=== PATIENT | female | born 1955 | race Caucasian/White ===

== ENCOUNTER 2017-08-01 15:06 | Outpatient (CLI) | payer BC ==
--- NOTE | 2017-08-02 11:47 | Mammography Report ---
DIGITAL SCREENING MAMMOGRAM: 08/01/2017 CLINICAL INDICATION: A 62-year-old with family history of breast cancer, for screening. COMPARISON: Films from [place], [place] dated 01/26/2014, 02/12/2012, 06/02/2010, 11/14/2009, 05/31/2009, 05/27/2009. TECHNIQUE: Routine CC and MLO projections were obtained of the breasts. FINDINGS: The breasts demonstrate scattered fibroglandular densities bilaterally. Punctate, typically benign calcifications are present. No suspicious masses, clustered microcalcifications, or regions of architectural distortion are identified. IMPRESSION: BENIGN FINDINGS. RECOMMENDATION: ROUTINE ANNUAL SCREENING UNLESS OTHERWISE CLINICALLY INDICATED. BIRADS CATEGORY 2-BENIGN FINDINGS. STANDARD QUALIFYING STATEMENTS: 1. This examination was reviewed with the aid of Computer-Aided Detection (CAD). 2. A negative or benign imaging report should not delay biopsy if clinically suspicious findings are present. Consider surgical consultation if warranted. More than 5% of cancers are not identified by imaging. 3. Dense breasts may obscure an underlying neoplasm. TD: 08/02/2017 11:47
== END 2017-08-01 15:07 | disposition home or self-care (01) ==
LOC: DI 15:06
PROVIDERS: ATTEND Family Medicine
DX: Z12.31 Encounter for screening mammogram for malignant neoplasm of breast (principal); Z80.3 Family history of malignant neoplasm of breast
CPT/HCPCS: 77067

== ENCOUNTER 2018-10-30 08:59 | Outpatient (CLI) | payer BC ==
--- NOTE | 2018-10-31 08:55 | Ultrasound Report ---
Reason: HYPERTENSION Procedure Date: 10/30/2018 Accession Number: [id number] / [id number] Procedure: US - Arterial Visceral Complete CPT Code: FULL RESULT: EXAM: RENAL ARTERY DOPPLER ULTRASOUND EXAM DATE: 10/30/2018 10:34 AM. CLINICAL HISTORY: Hypertension. COMPARISON: None. TECHNIQUE: Real-time sonographic vascular imaging was performed by the resin filterer through the renal arterial system with a linear transducer utilizing color-flow, Doppler flow, and spectral analysis. Multiple business banking representative static images were saved for review. FINDINGS: Right Kidney: 11.0 x 6.2 x 5.1 cm. Echotexture: Within normal limits. Right Segmental Artery: Upper pole: PSV 22 cm/sec, RI 0.65. Mid pole: PSV 26 cm/sec, RI 0.65. Lower pole: PSV 26 cm/sec, RI 0.66. Right Renal Artery: Origin: PSV 107 cm/sec, RA/AO 1.14. Proximal: PSV 163 cm/sec, RA/AO 1.73. Mid: PSV 135 cm/sec, RA/AO 1.44. Distal: PSV 146 cm/sec, RA/AO 1.55. Aorta PSV: 94 cm/sec. RRV Patent: Yes. Left Kidney: 11. x 5.6 x 4.5 cm. Echotexture: Within normal limits. Left Segmental Artery: Upper pole: PSV 27 cm/sec, RI 0.64. Mid pole: PSV 29 cm/sec, RI 0.64. Lower pole: PSV 24 cm/sec, RI 0.62. Left Renal Artery: Origin: PSV 128 cm/sec, RA/AO 1.36. Proximal: PSV 153 cm/sec, RA/AO 1.63. Mid: PSV 155 cm/sec, RA/AO 1.65. Distal: PSV 142 cm/sec, RA/AO 1.51. LRV Patent: Yes. IMPRESSION: Normal renal artery Doppler ultrasound. No sonographic evidence of renal artery stenosis. CRITERIA FOR CLASSIFICATION OF RENAL ARTERY (RA) DISEASE BY DUPLEX SCANNING: RA Diameter Reduction/ RA PSV/ RAR: Normal, < 180 cm/sec, < 3.5 < 60%, >= 180 cm/sec, < 3.5 >= 60%, >= 180 cm/sec, >= 3.5 Total Occlusion: Undetectable; Not applicable RADIA
== END 2018-10-30 09:00 | disposition home or self-care (01) ==
LOC: DI 08:59
PROVIDERS: ATTEND Physician Assistant
DX: I10 Essential (primary) hypertension (principal)
CPT/HCPCS: 93975

== ENCOUNTER 2019-01-15 08:55 | Emergency (ER) | payer BC ==
[2019-01-15] MEDS ORDERED: DEXAMETHASONE 10 MG/ML VIAL PO STA (09:58)
[2019-01-15] MEDS ORDERED: CHERRY SYRUP 10 ML UDC PO ONE (09:58)
--- NOTE | 2019-01-15 10:03 | ED Physician Documentation ---
History of Present Illness - Stated complaint Stated Complaint: HEAD PAIN - Chief complaint Chief Complaint: Neuro - History obtained from History obtained from: Patient, Family - History of Present Illness Timing: How many days ago (3) - Additonal information Additional information: 63-year-old female has began to feel some effects of trigeminal neuralgia on her right side behind her right ear. She is getting electrical shocks about once per minute. She has had this happen to her previously about 6 years ago she was on some medication for about a month. She has a daughter who is had trigeminal neuralgia as well who did up having a surgical procedure. The patient denies any current illness she denies any trouble with her teeth or her ears today. Review of Systems Constitutional: denies: Fever Eyes: denies: Decreased vision Ears: denies: Ear pain Nose: denies: Rhinorrhea / runny nose, Congestion Throat: denies: Sore throat Cardiac: denies: Chest pain / pressure Respiratory: denies: Dyspnea, Cough GI: denies: Nausea, Vomiting : denies: Dysuria, Frequency PD PAST MEDICAL HISTORY - Past Medical History Past Medical History: Yes Cardiovascular: Hypertension, High cholesterol Endocrine/Autoimmune: Type 2 diabetes Musculoskeletal: Osteoporosis - Past Surgical History Past Surgical History: Yes General: Cholecystectomy - Present Medications Home Medications: Ambulatory Orders Medication Instructions Recorded Confirmed carBAMazepine [TEGretol] 100 mg PO BID #40 tablet 01/15/19 - Allergies Allergies/Adverse Reactions: Allergies Allergy/AdvReac Type Severity Reaction Status Date / Time No Known Drug Allergies Allergy Verified 01/15/19 09:03 - Social History Does the pt smoke?: No Smoking Status: Never smoker Does the pt drink ETOH?: No Does the pt have substance abuse?: No - Immunizations Immunizations are current?: Yes - POLST Patient has POLST: No PD ED PE NORMAL - Vitals Vital signs reviewed: Yes (hypertensive ) - General General: Alert and oriented X 3, No acute distress, Well developed/nourished - HEENT HEENT: Atraumatic, PERRL, EOMI, Ears normal, Moist mucous membranes, Pharynx benign, Dentition benign - Neck Neck: Supple, no meningeal sign, No bony TTP - Cardiac Cardiac: RRR, No murmur - Respiratory Respiratory: No respiratory distress, Clear bilaterally - Abdomen Abdomen: Soft, Non tender - Back Back: No CVA TTP, No spinal TTP - Derm Derm: Normal color, Warm and dry, No rash - Extremities Extremities: No deformity, No edema - Neuro Neuro: Alert and oriented X 3, communication technician 2-12 intact, No motor deficit, No sensory deficit, Normal speech Eye Opening: Spontaneous Motor: Obeys Commands Verbal: Oriented GCS Score: 15 - Psych Psych: Normal mood, Normal affect Results - Vitals Vitals: Vital Signs - 24 hr 01/15/19 09:03 Temperature 36.5 C Heart Rate 75 Respiratory 16 Rate Blood Pressure 181/100 H O2 Saturation 96 Oxygen O2 Source Room air PD MEDICAL DECISION MAKING - ED course Complexity details: considered differential, d/w patient, d/w family ED course: 63-year-old female with a history of trigeminal neuralgia has a recurrence of her symptoms again. She is administered dexamethasone 10 mg orally and we will place her on some Tegretol for the time being. Departure - Departure Disposition: 01 Home, Self Care Clinical Impression: Trigeminal neuralgia Condition: Stable Instructions: ED Neuralgia Trigeminal Follow-Up: CRISSY ZAVALA PA-C [Primary Care Provider] - Prescriptions: carBAMazepine [TEGretol] 100 mg PO BID #40 tablet
[2019-01-15 10:36] VITALS: BP 178/100
== END 2019-01-15 10:36 | disposition home or self-care (01) ==
LOC: ED 08:55
DX: G50.0 Trigeminal neuralgia (principal); I10 Essential (primary) hypertension; E11.9 Type 2 diabetes mellitus without complications
CPT/HCPCS: 99282; 99283; A9270

== ENCOUNTER 2019-09-07 10:46 | Outpatient (CLI) | payer MEDICARE, OTHER ==
--- NOTE | 2019-09-07 12:04 | XRAY Report ---
Reason: CORNS AND CALLOSITIES,PAIN OF RIGHT GREAT TOE Procedure Date: 09/07/2019 Accession Number: [id number] / [id number] Procedure: XR - Foot 3 View RT CPT Code: Final Report FULL RESULT: EXAM: RIGHT FOOT RADIOGRAPHY EXAM DATE: 09/07/2019 11:01 AM. CLINICAL HISTORY: CORNS AND CALLOSITIES, PAIN OF RIGHT GREAT TOE. COMPARISON: None. TECHNIQUE: 3 views. FINDINGS: Bones: Small plantar and Achilles calcaneal spurs. No fractures or bone lesions. Chronic appearing ossicle at the tip of the fibula likely represents a developmental ossicle. An old fracture fragment is less likely. Moderate sized accessory navicular incidentally noted. Joints: Mild first MTP joint degenerative disease. No subluxations. Soft Tissues: Normal. No soft tissue swelling. IMPRESSION: 1. No definite acute abnormality. 2. First MTP joint degenerative disease. 3. Lateral ankle probable incidental developmental ossicle. RADIA
== END 2019-09-07 10:47 | disposition home or self-care (01) ==
LOC: DI 10:46
PROVIDERS: ATTEND Physician Assistant
DX: M19.071 Primary osteoarthritis, right ankle and foot (principal)

== ENCOUNTER 2019-10-12 11:45 | Outpatient (CLI) | payer MEDICARE, OTHER | END 2019-10-12 11:46 | disposition home or self-care (01) | LOC: LAB 11:45 | PROVIDERS: ATTEND Physician Assistant | DX: Z11.59 Encounter for screening for other viral diseases (principal) | CPT/HCPCS: 81599 ==

== ENCOUNTER 2021-05-09 10:04 | Outpatient (CLI) | payer MEDICARE, OTHER ==
--- NOTE | 2021-05-10 11:39 | Mammography Report ---
BILATERAL DIGITAL SCREENING MAMMOGRAM 3D/2D: 05/09/2021 CLINICAL: Routine screening. Comparison is made to exams dated: 08/01/2017 mammogram, 01/26/2014 mammogram, and 02/12/2012 mammogra m - [facility]. There are scattered fibroglandular elements in both breasts. No significant masses, calcifications, or other findings are seen in either breast. There has been no significant interval change. IMPRESSION: NEGATIVE There is no mammographic evidence of malignancy. A 1 year screening mammogram is recommended. This exam was interpreted at Station ID: [id number]. NOTE: For mammograms, a report in lay terms will be sent to the patient. Approximately 15% of breast malignancies will not be visualized mammographically. In the management of a palpable breast mass, a negative mammogram must not discourage biopsy of a clinically suspicious lesion. Electronically Signed By: Patel Tolentino M.D. aty/penrad:05/09/2021 19:03:37 ACR BI-RADS Category 1: Negative 3341F PARENCHYMAL PATTERN: (A) - The breast(s) demonstrate(s) scattered fibroglandular densities. BI-RADS CATEGORY: (1) - 1 RECOMMENDATION: (ANNUAL) - Recommend routine annual screening mammography. [id number] 1 year screening LATERALITY: (B)
== END 2021-05-09 10:05 | disposition home or self-care (01) ==
LOC: DI.N 10:04
PROVIDERS: ATTEND Physician Assistant
DX: Z12.31 Encounter for screening mammogram for malignant neoplasm of breast (principal)

== ENCOUNTER 2021-05-09 10:08 | Outpatient (CLI) | payer MEDICARE, OTHER ==
--- NOTE | 2021-05-09 11:21 | XRAY Report ---
PROCEDURE: Hip w/Pelvis 1V RT INDICATIONS: BILAT KNEE PAIN, GLUTEAL PAIN TECHNIQUE: AP pelvis with lateral view(s) of the right hip(s). COMPARISON: Same day right femur radiographs. FINDINGS: Bones: Right hip total arthroplasty. No periprosthetic lucency to suggest loosening or infection. No fractures or dislocations. Pelvic ring appears intact. No suspicious bony lesions. Soft tissues: The visualized bowel gas pattern is normal. No suspicious soft tissue calcifications. IMPRESSION: Expected appearance of the right hip arthroplasty. Reviewed by: Villa Malin MD on 05/09/2021 11:20 AM [facility] Approved by: Villa Malin MD on 05/09/2021 11:20 AM [facility] Station ID: [id number]
--- NOTE | 2021-05-09 14:01 | XRAY Report ---
PROCEDURE: Femur 1V RT INDICATIONS: BILAT KNEE PAIN, GLUTEAL PAIN TECHNIQUE: 2 views of the femur were acquired. COMPARISON: Same day knee radiographs. FINDINGS: Bones: Right hip total arthroplasty. No periprosthetic lucency is seen. 2 screws at the tibial tuber osity. Severe degenerative change at the medial compartment of the right knee. No fractures or disloc ations. No suspicious bony lesions. Soft tissues: No suspicious soft tissue calcifications or masses. IMPRESSION: No fracture seen. 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 Right hip arthroplasty. Tibial screws. Reviewed by: Villa Malin MD on 05/09/2021 1:59 PM PST Approved by: Villa Malin MD on 05/09/2021 1:59 PM PST Station ID: [id number]
--- NOTE | 2021-05-09 16:20 | XRAY Report ---
PROCEDURE: Knee Standing AP View Only INDICATIONS: BILATERAL KNEE PX TECHNIQUE: 1 views of the left knee, and 1 views of the right knee. COMPARISON: None. FINDINGS: Bones: No acute fractures or dislocations. No suspicious bony lesions. Joint spaces appear normal with weightbearing. Left knee arthroplasty is intact without evidence of hardware fracture or peripr osthetic loosening. Right knee demonstrates severe medial compartment narrowing without erosions. Pro minent periarticular osteophytes are present. Soft tissues: No knee joint effusions. No suspicious soft tissue calcification. IMPRESSION: Left knee arthroplasty. Severe medial right arthritic change. Reviewed by: Terrie Donaldson MD on 05/09/2021 4:18 PM PST Approved by: Terrie Donaldson MD on 05/09/2021 4:18 PM PST Station ID: [id number]
== END 2021-05-09 10:09 | disposition home or self-care (01) ==
LOC: DI.N 10:08
PROVIDERS: ATTEND Physician Assistant
DX: M79.18 Myalgia, other site (principal); M17.11 Unilateral primary osteoarthritis, right knee; Z96.641 Presence of right artificial hip joint; Z96.652 Presence of left artificial knee joint

== ENCOUNTER 2021-05-22 08:00 | Outpatient (CLI) | payer MEDICARE, OTHER ==
[2021-05-22 09:46] LABS: BASOPHILS # (AUTO) 0.1 10^3/uL (0.0-0.1); BASOPHILS % (AUTO) 0.6 %; EOSINOPHILS # (AUTO) 0.3 10^3/uL (0.0-0.7); EOSINOPHILS % (AUTO) 3.1 %; HCT - HEMATOCRIT 41.3 % (37.0-47.0); HGB - HEMOGLOBIN 13.6 g/dL (12.0-16.0); LYMPHOCYTES # (AUTO) 1.9 10^3/uL (1.5-3.5); LYMPHOCYTES % (AUTO) 23.8 %; MEAN CORPUSCULAR HGB CONC 32.9 g/dL (32.0-36.0); MEAN CORPUSCULAR VOLUME 91.2 fL (81.0-99.0); MEAN PLATELET VOLUME 10.8 fL (7.9-10.8); MONOCYTES # (AUTO) 0.5 10^3/uL (0.0-1.0); MONOCYTES % (AUTO) 6.7 %; NEUTROPHILS # (AUTO) 5.3 10^3/uL (1.5-6.6); NEUTROPHILS % (AUTO) 65.4 %; PLT - PLATELET COUNT 264 10^3/uL (130-450); RED BLOOD COUNT 4.53 10^6/uL (4.20-5.40); RED CELL DISTRIBUTION WIDTH 13.3 % (12.0-15.0)
[2021-05-22 10:02] LABS: ESTIMATED AVERAGE GLUCOSE 169 mg/dL (70-100); HEMOGLOBIN A1c% 7.5 % (4.27-6.07)
[2021-05-22 10:05] LABS: ALBUMIN 3.8 g/dL (3.2-5.5); ALBUMIN/GLOBULIN RATIO 1.3 (1.0-2.2); ALKALINE PHOSPHATASE 57 IU/L (42-121); ALT ALANINE AMINOTRANSFERASE 23 IU/L (10-60); AST ASPARTATE AMINOTRANSFERASE 18 IU/L (10-42); BILIRUBIN,TOTAL 0.5 mg/dL (0.2-1.0); BUN - BLOOD UREA NITROGEN 23 mg/dL (6-20); CALCIUM 9.7 mg/dL (8.5-10.3); CARBON DIOXIDE - CO2 25 mmol/L (21-32); CHLORIDE 103 mmol/L (101-111); CHOL/HDL RATIO 2.6 (<4.4); CHOLESTEROL 173 mg/dL; CREATININE 0.7 mg/dL (0.4-1.0); GFR - MDRD 83 (>89); GLUCOSE 120 mg/dL (70-100); HDL CHOLESTEROL 66 mg/dL; LDL CHOLESTEROL,CALCULATED 85 mg/dL; LDL/HDL RATIO 1.3 (<4.4); LIPASE 43 U/L (22-51); SODIUM 138 mmol/L (135-145); TOTAL PROTEIN 6.7 g/dL (6.7-8.2); TRIGLYCERIDES 111 mg/dL; VLDL CHOLESTEROL 22 mg/dL
== END 2021-05-22 23:59 ==
LOC: LAB 08:00
PROVIDERS: ATTEND Family Medicine
DX: E11.9 Type 2 diabetes mellitus without complications (principal); R10.84 Generalized abdominal pain
CPT/HCPCS: 36415; 80053; 80061; 83036; 83690; 83721; 85025

== ENCOUNTER 2021-06-12 07:56 | Day surgery (SDC) | payer MEDICARE, OTHER ==
[2021-06-12] MEDS ORDERED: PROPOFOL 500 MG/50 ML 500 MG/50 ML VIAL ONE (08:04)
[2021-06-12] MEDS ORDERED: LACTATED RINGERS 1,000 ML IV ONE ×2 (08:04→10:20)
--- NOTE | 2021-06-12 08:19 | ANESTHESIA ---
Pre-Anesthesia VS, & Labs - Diagnosis hx colon polyps - Procedure colonoscopy Vital Signs: Temp Pulse Resp BP Pulse Ox 36 C L 90 18 152/93 H 95 06/12/21 08:07 06/12/21 08:07 06/12/21 08:07 06/12/21 08:07 06/12/21 08:07 Height: 5 ft 6 in Weight (kg): 135 kg Body Mass Index: 48.0 BMI Classification: Morbidly Obese - NPO >8 hours Last Fluid Intake: am prep - Is Patient ?: No - Lab Results Lab results reviewed: Yes Home Medications and Allergies Home Medications: Ambulatory Orders Acetaminophen [Tylenol Arthritis] 1,300 mg PO DAILY 05/23/21 Aspirin [Aspirin EC] 81 mg PO DAILY 05/23/21 Atorvastatin [Lipitor] 10 mg PO DAILY 05/23/21 Cholecalciferol [Vitamin D3] 25 mcg PO DAILY 05/23/21 Lisinopril/Hydrochlorothiazide [Zestoretic 20-12.5 mg Tablet] 1 each PO DAILY 05/23/21 Meloxicam [Mobic] 7.5 mg PO BID 05/23/21 Ox Bile 1 tab PO DAILY 05/23/21 metFORMIN [Glucophage] 500 mg PO BIDWM 05/23/21 Acetaminophen [Tylenol Arthritis] 1,300 mg PO DAILY 05/23/21 Aspirin [Aspirin EC] 81 mg PO DAILY 05/23/21 Atorvastatin [Lipitor] 10 mg PO DAILY 05/23/21 Cholecalciferol [Vitamin D3] 25 mcg PO DAILY 05/23/21 Lisinopril/Hydrochlorothiazide [Zestoretic 20-12.5 mg Tablet] 1 each PO DAILY 05/23/21 Meloxicam [Mobic] 7.5 mg PO BID 05/23/21 Ox Bile 1 tab PO DAILY 05/23/21 metFORMIN [Glucophage] 500 mg PO BIDWM 05/23/21 Allergies/Adverse Reactions: Allergies Allergy/AdvReac Type Severity Reaction Status Date / Time No Known Drug Allergies Allergy Verified 06/09/21 14:08 Anes History & Medical History - Anesthetic History Anesthesia Complications: reports: No previous complications Family history of Anesthesia Complications: Denies Family history of Malignant Hyperthermia: Denies - Medical History Cardiovascular: reports: Hypertension, High cholesterol, PR (silent (seen on EKG years ago)) Pulmonary: reports: None, Other (hx angio edema with meds in early ) Gastrointestinal: reports: Colon polyps Urinary: reports: None Neuro: reports: Other (hx trigeminal neuralgia) Musculoskeletal: reports: Osteoarthritis, Osteoporosis Endocrine/Autoimmune: reports: Type 2 diabetes Blood Disorders: reports: None Skin: reports: None Smoking Status: Never smoker Psychosocial: reports: No issues indicated, Alcohol (rare) History of Cancer?: No - Surgical History General: reports: Cholecystectomy Gynecologic: reports: Hysterectomy Orthopedic: reports: Hip replacement, Knee replacement Exam General: Alert, Oriented x3, Cooperative Dental: WNL Mouth Openin Fingerbreadth Neck Mobility: Normal Mallampati classification: II Thyromental Distance: 4-6 cm Respiratory: Lungs clear, Normal breath sounds, No respiratory distress Cardiovascular: Regular rate Neurological: Normal speech Mental/Cognitive Status: Alert/Oriented X3, Normal for patient Cognitive Status: Within normal limits Plan Anesthesia Type: Total IV Consent for Procedure(s) Verified and Reviewed: Yes Code Status: Attempt Resuscitation ASA classification: 3-Severe systemic disease Is this case an emergency?: No
[2021-06-12] MEDS ORDERED: fentaNYL 100 MCG/2 ML VIAL ONE (10:03)
[2021-06-12] MEDS ORDERED: MIDAZOLAM 2 MG/2 ML VIAL ONE (10:03)
[2021-06-12 10:43] VITALS: BP 127/80
--- NOTE | 2021-06-12 11:25 | ANESTHESIA POST OP EVALUATION ---
Anesthesia Post Eval - Post Anesthesia Eval Vitals: Last Vital Signs Temp 36.5 C 06/12/21 10:21 Pulse 83 06/12/21 10:41 Resp 19 06/12/21 10:41 BP 127/80 06/12/21 10:41 Pulse Ox 95 06/12/21 10:41 CV Function Including HR & BP: Stable Pain Control: Satisfactory Nausea & Vomiting: Negative Mental Status: Baseline Respiratory Status: Airway Patent Hydration Status: Satisfactory Anesthesia Complications: None
== END 2021-06-12 07:57 | disposition home or self-care (01) ==
LOC: SDS 07:56
PROVIDERS: ATTEND Surgery
DX: Z12.11 Encounter for screening for malignant neoplasm of colon (principal); K57.30 Diverticulosis of large intestine without perforation or abscess without bleeding; K64.8 Other hemorrhoids; Z86.010 Personal history of colon polyps; E11.9 Type 2 diabetes mellitus without complications; E66.01 Morbid (severe) obesity due to excess calories; Z68.42 Body mass index [BMI] 45.0-49.9, adult; Z79.84 Long term (current) use of oral hypoglycemic drugs; I25.2 Old myocardial infarction
CPT/HCPCS: G0105; J7120

== ENCOUNTER 2021-08-21 08:48 | Day surgery (SDC) | payer MEDICARE, OTHER ==
[2021-08-21] MEDS ORDERED: LACTATED RINGERS 1,000 ML IV ONE ×2 (09:17→11:22)
[2021-08-21] MEDS ORDERED: MIDAZOLAM 2 MG/2 ML VIAL ONE (09:27)
[2021-08-21] MEDS ORDERED: LIDOCAINE-MPF 2% 5 ML VIAL ONE (09:27)
[2021-08-21] MEDS ORDERED: fentaNYL 100 MCG/2 ML VIAL ONE (09:27)
[2021-08-21] MEDS ORDERED: PROPOFOL 200 MG/20 ML VIAL IVP ONE (09:29)
--- NOTE | 2021-08-21 09:31 | ANESTHESIA ---
Pre-Anesthesia VS, & Labs - Diagnosis umbilical hernia - Procedure umbilical hernia repair Vital Signs: Temp Pulse Resp BP Pulse Ox 36.2 C L 75 14 126/90 H 94 08/21/21 09:17 08/21/21 09:17 08/21/21 09:17 08/21/21 09:17 08/21/21 09:17 Height: 5 ft 5 in Weight (kg): 130.7 kg Body Mass Index: 47.9 BMI Classification: Morbidly Obese - NPO >8 hours - Is Patient ?: No Home Medications and Allergies Home Medications: Ambulatory Orders Acetaminophen [Acetaminophen Extra Strength] 1,000 mg PO Q6HR 08/14/21 Semaglutide [Ozempic] 0.25 mg SQ ONCE 08/14/21 traMADol [Ultram] 50 mg PO ONCE PRN 08/14/21 Aspirin [Aspirin EC] 81 mg PO DAILY 05/23/21 Atorvastatin [Lipitor] 10 mg PO DAILY 05/23/21 Cholecalciferol [Vitamin D3] 25 mcg PO DAILY 05/23/21 Lisinopril/Hydrochlorothiazide [Zestoretic 20-12.5 mg Tablet] 1 each PO DAILY 05/23/21 Meloxicam [Mobic] 7.5 mg PO BID 05/23/21 Ox Bile 1 tab PO DAILY 05/23/21 metFORMIN [Glucophage] 1,000 mg PO BID 05/23/21 Acetaminophen [Acetaminophen Extra Strength] 1,000 mg PO Q6HR 08/14/21 Semaglutide [Ozempic] 0.25 mg SQ ONCE 08/14/21 traMADol [Ultram] 50 mg PO ONCE PRN 08/14/21 Allergies/Adverse Reactions: Allergies Allergy/AdvReac Type Severity Reaction Status Date / Time hydrocodone AdvReac Hallucinati Verified 08/21/21 09:22 ons Anes History & Medical History - Anesthetic History Anesthesia Complications: reports: No previous complications - Medical History Cardiovascular: reports: Hypertension, High cholesterol, NM Pulmonary: reports: None, Other Gastrointestinal: reports: Ulcers, Colon polyps Urinary: reports: None Neuro: reports: Other (hx trigeminal neuralgia) Musculoskeletal: reports: Osteoporosis Endocrine/Autoimmune: reports: Type 2 diabetes Blood Disorders: reports: None Skin: reports: None Smoking Status: Never smoker History of Cancer?: No - Surgical History General: reports: Cholecystectomy Gynecologic: reports: Hysterectomy Orthopedic: reports: Hip replacement, Knee replacement Exam General: Alert Dental: WNL Mouth Opening: Greater than 4 Fingerbreadths Neck Mobility: Normal Mallampati classification: III Respiratory: Lungs clear Cardiovascular: Regular rate, Normal S2 Plan Anesthesia Type: General Consent for Procedure(s) Verified and Reviewed: Yes Code Status: Attempt Resuscitation ASA classification: 3-Severe systemic disease Is this case an emergency?: No
[2021-08-21] MEDS ORDERED: ATROPINE ABBOJECT 1 MG/10 ML SYRINGE IVP PRN (09:38)
[2021-08-21] MEDS ORDERED: ePHEDrine 50 MG/ML VIAL IVP PRN (09:38)
[2021-08-21] MEDS ORDERED: NALOXONE 0.4 MG/ML VIAL IVP PRN (09:38)
[2021-08-21] MEDS ORDERED: fentaNYL 100 MCG/2 ML VIAL IVP PRN (09:38)
[2021-08-21] MEDS ORDERED: METOCLOPRAMIDE 10 MG/2 ML VIAL IVP PRN (09:38)
[2021-08-21] MEDS ORDERED: ONDANSETRON 4 MG/2 ML VIAL IVP PRN ×2 (09:38→11:21)
[2021-08-21] MEDS ORDERED: MORPHINE 2 MG/ML CARPUJECT IVP PRN (09:38)
[2021-08-21] MEDS ORDERED: BUPIVACAINE 0.25% PF 10 ML VIAL ONE (09:59)
[2021-08-21] MEDS ORDERED: LIDOCAINE MPF 2%-EPI 1:200000 20 ML VIAL ONE (09:59)
[2021-08-21] MEDS ORDERED: ceFAZolin 1 GM VIAL ONE (09:59)
[2021-08-21] MEDS ORDERED: LACTATED RINGERS 1,000 ML IV SCH (10:00)
[2021-08-21] MEDS ORDERED: ROCURONIUM 50 MG/5 ML VIAL ONE (10:36)
[2021-08-21] MEDS ORDERED: ONDANSETRON 4 MG/2 ML VIAL ONE (10:43)
[2021-08-21] MEDS ORDERED: DEXAMETHASONE 4 MG/ML VIAL ONE (10:43)
[2021-08-21] MEDS ORDERED: ACETAMINOPHEN 1,000 MG/100 ML 100 ML IV ONE (10:43)
[2021-08-21] MEDS ORDERED: BUPIVACAINE 0.25% PF 10 ML VIAL SUBQ ONE (10:47)
[2021-08-21] MEDS ORDERED: LIDOCAINE MPF 2%-EPI 1:200000 20 ML VIAL SUBQ ONE (10:49)
[2021-08-21] MEDS ORDERED: ceFAZolin 1 GM VIAL IR ONE (10:49)
--- NOTE | 2021-08-21 11:18 | OPERATIVE REPORT ---
Operative Report - General Procedure Date: 08/21/21 Planned Procedure: Umbilical hernia repair with mesh Pre-Op Diagnosis: Large, incarcerated umbilical hernia Procedure Performed: Umbilical hernia repair with mesh Post Op Diagnosis: Incarcerated umbilical hernia with a second half centimeter hernia superior - Procedure Note Primary Surgeon: Slim Anesthesia Provider: CLAUDIA Marti Anesthesia Technique: General ET tube Pathology: None Estimated Blood Loss (mL): 15 Indications: Painful and incarcerated umbilical hernia Findings: 3 cm umbilical defect with a second half centimeter defect 1 cm superior to the primary defect Incarcerated contents in both openings included only omentum. Complications: None apparent - Other Other Information/Narrative: After obtaining informed consent, the patient is brought to the operating room and placed in the supine position on the operating table. Following successful induction of general endotracheal anesthesia, appropriate padding of all bony prominences, and placement of appropriate monitors, the abdomen was prepped and draped in the standard surgical fashion. A timeout was held per scope protocol. All elements of the surgical safety checklist were followed before, during, and after the procedure. Following infiltration with local anesthetic to create a field block, an incision was created directly through the umbilicus and over the palpable and visible defect. This was carried through the skin and subcutaneous tissue. The umbilical tissue was then freed from the umbilical remnant for complete exposure to the hernia sack. The defect was noted to be approximately 3 cm in greatest dimension. The hernia sac itself was approximately 12 cm. The hernia sac was carefully dissected free from the overlying skin and underlying fascial tissue as well as the surrounding areolar tissue. The contents of the sac were eased back into the abdominal cavity. The surgeon's finger was then inserted into the defect and the anterior abdominal wall palpated internally to be sure there was enough space for mesh placement. A second defect was identified about 1 cm superior to the primary opening. This contained a separate finger of omentum. This was addressed by exposing it on the anterior surface of the fascia and pushing the contents back in. With a combination of traction from the backside and pushing from the front, we were able to remove the incarcerated omentum. This defect was quite small and easily covered by mesh placement in the primary opening. We elected to repair the defect with a 8 cm a portion of secure mesh. The mesh was dipped in Ancef solution and into the defect. It was straightened and flattened in the preperitoneal space. Placement was checked and adjusted. Once we were satisfied it was ideal, the tails were trimmed and sewn to the fascia anteriorly. The wound was checked for hemostasis and irrigated with Ancef containing solution The umbilicus was reconstructed with interrupted Vicryl suture. The incision was closed in layers with Vicryl and Monocryl suture and Dermabond was applied to the skin. All sponge, needle, and instrument counts were correct at the conclusion of the case. The patient was allowed awaken from anesthesia without difficulty and taken to the postanesthesia care unit in good condition.
[2021-08-21] MEDS ORDERED: ACETAMINOPHEN 325 MG TABLET PO PRN (11:21)
[2021-08-21] MEDS ORDERED: oxyCODONE 5 MG TABLET PO PRN (11:21)
[2021-08-21] MEDS ORDERED: SUGAMMADEX 200 MG/2 ML VIAL IVP ONE (11:21)
[2021-08-21] MEDS ORDERED: IBUPROFEN 600 MG TABLET PO PRN (11:21)
--- NOTE | 2021-08-21 11:44 | ANESTHESIA POST OP EVALUATION ---
Anesthesia Post Eval - Post Anesthesia Eval Vitals: Last Vital Signs Temp 36.1 C L 08/21/21 11:22 Pulse 80 08/21/21 11:42 Resp 16 08/21/21 11:42 BP 125/64 08/21/21 11:42 Pulse Ox 95 08/21/21 11:42 CV Function Including HR & BP: Stable Pain Control: Satisfactory Nausea & Vomiting: Negative Mental Status: Baseline Respiratory Status: Airway Patent Hydration Status: Satisfactory Anesthesia Complications: None
[2021-08-21 13:04] VITALS: BP 143/62
== END 2021-08-21 08:49 | disposition home or self-care (01) ==
LOC: SDS 08:48
PROVIDERS: ATTEND Surgery
DX: K42.0 Umbilical hernia with obstruction, without gangrene (principal); I10 Essential (primary) hypertension; E11.42 Type 2 diabetes mellitus with diabetic polyneuropathy; E66.01 Morbid (severe) obesity due to excess calories; Z68.42 Body mass index [BMI] 45.0-49.9, adult; Z79.84 Long term (current) use of oral hypoglycemic drugs
CPT/HCPCS: 49587; C1781; J0131; J7040; J7120

== ENCOUNTER 2022-05-09 08:33 | Outpatient (CLI) | payer MEDICARE, OTHER ==
--- NOTE | 2022-05-10 12:16 | Mammography Report ---
BILATERAL DIGITAL SCREENING MAMMOGRAM 3D/2D: 05/09/2022 CLINICAL: Routine screening. Comparison is made to exams dated: 05/09/2021 mammogram, 08/01/2017 mammogram, and 01/26/2014 mammogram - [facility]. There are scattered areas of fibroglandular density in both breasts (category b / 25%-50% glandular t issue). No significant masses, calcifications, or other findings are seen in either breast. There has been no significant interval change. IMPRESSION: NEGATIVE There is no mammographic evidence of malignancy. A 1 year screening mammogram is recommended. Based on the Tyrer Cuzick model (a risk assessment model) the patients lifetime risk is 4.8% and her 10 year risk is 2.6%. According to the ACR, ACS, and NCCN guidelines, an annual breast MRI exam miah g with mammogram is recommended if the patients lifetime risk is 20% or greater. This exam was interpreted at Station ID: [id number]. NOTE: For mammograms, a report in lay terms will be sent to the patient. Approximately 15% of breast malignancies will not be visualized mammographically. In the management of a palpable breast mass, a negative mammogram must not discourage biopsy of a clinically suspicious lesion. Electronically Signed By: Patel [email or web address]:05/09/2022 17:17:51 ACR BI-RADS Category 1: Negative 3341F PARENCHYMAL PATTERN: (A) - The breast(s) demonstrate(s) scattered fibroglandular densities. BI-RADS CATEGORY: (1) - 1 RECOMMENDATION: (ANNUAL) - Recommend routine annual screening mammography. [id number] 1 year screening LATERALITY: (B)
== END 2022-05-09 08:34 | disposition home or self-care (01) ==
LOC: DI 08:33
PROVIDERS: ATTEND Physician Assistant
DX: Z12.31 Encounter for screening mammogram for malignant neoplasm of breast (principal)

== ENCOUNTER 2023-07-16 14:15 | Outpatient (CLI) | payer MEDICARE, OTHER ==
--- NOTE | 2023-07-17 09:53 | Mammography Report ---
BILATERAL DIGITAL SCREENING MAMMOGRAM 3D/2D: 07/16/2023 CLINICAL: Routine screening. Comparison is made to exams dated: 05/09/2022 mammogram, 05/09/2021 mammogram, 08/01/2017 mammogram, an d 01/26/2014 mammogram - [facility]. There are scattered areas of fibroglandular density in both breasts (category b / 25%-50% glandular t issue). No significant masses, calcifications, or other findings are seen in either breast. There has been no significant interval change. IMPRESSION: NEGATIVE There is no mammographic evidence of malignancy. A 1 year screening mammogram is recommended. Based on the Tyrer Cuzick model (a risk assessment model) the patient's lifetime risk is 4.5% and her 10 year risk is 2.7%. According to the ACR, ACS, and NCCN guidelines, an annual breast MRI exam miah g with mammogram is recommended if the patient's lifetime risk is 20% or greater. This exam was interpreted at Station ID: [id number]. NOTE: For mammograms, a report in lay terms will be sent to the patient. Approximately 15% of breast malignancies will not be visualized mammographically. In the management of a palpable breast mass, a negative mammogram must not discourage biopsy of a clinically suspicious lesion. Electronically Signed By: Villa [email or web address]/[email or web address]:07/17/2023 08:50:12 letter sent: No_Letter ACR BI-RADS Category 1: Negative 3341F PARENCHYMAL PATTERN: (A) - The breast(s) demonstrate(s) scattered fibroglandular densities. BI-RADS CATEGORY: (1) - 1 RECOMMENDATION: (ANNUAL) - Recommend routine annual screening mammography. [id number] 1 year screening LATERALITY: (B)
== END 2023-07-16 14:16 | disposition home or self-care (01) ==
LOC: DI 14:15
PROVIDERS: ATTEND Family Medicine
DX: Z12.31 Encounter for screening mammogram for malignant neoplasm of breast (principal); R92.323 Mammographic fibroglandular density, bilateral breasts

== ENCOUNTER 2023-08-07 07:33 | Outpatient (CLI) | payer MEDICARE, OTHER | END 2023-08-07 07:34 | disposition home or self-care (01) | LOC: DI 07:33 | PROVIDERS: ATTEND Family Medicine | DX: R01.1 Cardiac murmur, unspecified (principal) | CPT/HCPCS: 93307 ==